=== PATIENT | male | born 1980 | race Caucasian/White ===

== ENCOUNTER 2019-11-22 22:13 | Emergency (ER) | payer SELFPAY ==
[~2019-11-22] VITALS: Ht 188 cm; Wt 90.9 kg
[2019-11-22] MEDS ORDERED: MORPHINE SULFATE 2 MG/ML VIAL. IV/SQ PRN (22:30)
[2019-11-22 22:37] LABS: BASO # 0.1 x10^3/uL (0.0-0.2); BASO % 1 % (0-3); EOS # 0.1 x10^3/uL (0.0-0.7); EOS % 1 % (0-3); HEMATOCRIT 42.2 % (39.0-53.0); HEMOGLOBIN 14.5 g/dL (13.0-17.5); LYMPH # 3.2 x10^3/uL (1.0-4.8); LYMPH % 36 % (24-48); MEAN CORPUSCULAR HEMOGLOBIN 30 pg (25-35); MEAN CORPUSCULAR HGB CONC 34 g/dL (31-37); MEAN CORPUSCULAR VOLUME 87 fL (79-100); MONO # 0.5 x10^3/uL (0.0-1.1); MONO % 6 % (0-9); NEUT # 4.9 x10^3/uL (1.8-7.7); NEUT % 56 % (31-73); PLATELET COUNT 253 x10^3/uL (140-400); RED BLOOD COUNT 4.84 x10^6/uL (4.30-5.70); RED CELL DISTRIBUTION WIDTH 13.6 % (11.5-14.5); WHITE BLOOD COUNT 8.8 x10^3/uL (4.0-11.0)
--- NOTE | 2019-11-22 22:41 | PHYS DOC ---
General Adult EDM: Chief Complaint: CHEST PAIN HPI: HPI: Patient is a 39 year old male with complaint of chest pain and left arm pain that started this evening. Patient states initially the pain started in his left arm, all the way up to his left shoulder. He states that that started about 2 hours ago and then about an hour ago he started with pain throughout his chest. He describes it as feeling like a pressure as if something is sitting on his chest. He states that it 1 point he became nauseated but did not vomit. He denies any diaphoresis. He states that at its worst pain was about a 6 out of 10 and currently is about a 5 out of 10. Patient is not aware of any exacerbat ing or alleviating factors. [] Review of Systems: Review of Systems: Constitutional: Denies fever or chills. [] Respiratory: Denies cough or shortness of breath. [] Cardiovascular: Complains of chest pain. [] GI: Denies abdominal pain, vomiting or diarrhea. [] Neurologic: Denies headache, focal weakness or sensory changes. [] A full 10 point review of systems has been reviewed and is otherwise negative. Heart Score: HEART Score for Chest Pain: HEART Score for Chest Pain Response (Comments) Value History Moderately Suspicious 1 ECG Nonspecific Repolarizatio 1 Age < 45 0 Risk Factors No Risk Factors 0 Troponin < Normal Limit 0 Total 2 Risk Factors: Risk Factors: DM, Current or recent (<one month) smoker, HTN, HLP, family history of CAD, obesity. Risk Scores: Score 0 - 3: 2.5% MACE over next 6 weeks - Discharge Home Score 4 - 6: 20.3% MACE over next 6 weeks - Admit for Clinical Observation Score 7 - 10: 72.7% MACE over next 6 weeks - Early Invasive Strategies Current Medications: Current Medications Medications (Trade) Dose Ordered Sig/[facility] Start Time Stop Time Status Last Admin Dose Admin Aspirin (Aspirin Chewable) 324 mg 1X ONCE 11/22/19 23:00 11/22/19 23:01 Morphine Sulfate (Morphine Sulfate) 2 mg PRN Q15MIN PRN 11/22/19 22:30 11/23/19 22:29 UNV Sodium Chloride 1,000 ml @ 1,000 mls/hr Q1H 11/22/19 22:26 11/22/19 23:25 UNV Allergies: Allergies: Allergies Coded Allergies Type Severity Reaction Last Updated Verified meperidine Allergy Mild Unknown 11/22/19 Yes Physical Exam: PE: Constitutional: Well developed, well nourished, no acute distress, non-toxic appearance. [] HENT: Normocephalic, atraumatic, bilateral external ears normal, oropharynx moist, no oral exudates, nose normal. [] Eyes: PERRLA, EOMI, conjunctiva normal, no discharge. [] Neck: Normal range of motion, no tenderness, supple, no stridor. [] Cardiovascular: Regular rate and rhythm [] Lungs & Thorax: Bilateral breath sounds clear to auscultation [] Abdomen: Bowel sounds normal, soft, no tenderness. [] Skin: Warm, dry, no erythema, no rash. [] Extremities: No tenderness, no cyanosis, no clubbing, ROM intact, no edema. [] Neurologic: Alert and oriented X 3, no focal deficits noted. [] EKG: EKG: EKG demonstrates normal sinus rhythm with rate of 56. [] Radiology/Procedures: Radiology/Procedures: [] Course & Med Decision Making: Course & Med Decision Making Pertinent Labs and Imaging studies reviewed. (See chart for details) [] Dragon Disclaimer: [employer] Disclaimer: This electronic medical record was generated, in whole or in part, using a voice recognition dictation system. Departure Departure Impression: Primary Impression: Chest pain Qualified Codes: R07.9 - Chest pain, unspecified Disposition: 01 HOME, SELF-CARE Condition: STABLE Patient Instructions: Chest Pain (Nonspecific) Additional Instructions: Follow-up with your primary care provider in the next few days. Return to the emergency room if you have recurrence of the chest pain. SYED DIAZ Jr. DO November 22, 2019 22:41
[2019-11-22 22:45] LABS: CALCIUM 9.5 mg/dL (8.5-10.1); GFR 83.2; POTASSIUM 4.6 mmol/L (3.5-5.1)
[2019-11-22 22:51] LABS: ALBUMIN 4.3 g/dL (3.4-5.0); ALBUMIN/GLOBULIN RATIO 1.5 (1.0-1.7); TOTAL BILIRUBIN 0.7 mg/dL (0.2-1.0); TOTAL PROTEIN 7.2 g/dL (6.4-8.2)
[2019-11-22] MEDS ORDERED: ASPIRIN CHEWABLE 81 MG TABLET. PO ONE (23:00)
[2019-11-22] MEDS ORDERED: IV NORMAL SALINE 1000ML BAG 1,000 ML IV SCH (23:00)
--- NOTE | 2019-11-22 23:08 | RAD ---
PORTABLE CHEST 1V Clinical History: Chest pain Technique: AP view of the chest was obtained at 11/22/2019 10:26 PM. Comparison: None. Findings: The cardiomediastinal silhouette is normal. The pulmonary vasculature is normal. The pleural margins are clear. There is a small calcified granuloma on the right. Impression: No evidence of an acute cardiopulmonary process. Electronically signed by: Jesus Pham III, MD (11/22/2019 11:05 PM) [id number]
[2019-11-22] MEDS ORDERED: ONDANSETRON PF 4 MG/2 ML VIAL. IVP ONE (23:30)
[2019-11-23] MEDS ORDERED: KETOROLAC 30 MG/ML VIAL. IVP ONE (00:15)
[2019-11-23 02:25] VITALS: BP 106/54
--- NOTE | 2019-11-23 06:58 | EKG ---
[facility] [address] [place] [address] Test Date: 2019-11-22 Test Time: 22:21:27 Pat Name: NOEL MARTÍNEZ Department: Room: Gender: M Collision Technician: : 1980 Requested By: SYED DIAZ Order Number: [id number] Reading MD: Solo Willis Measurements Intervals Cisco Rate: 56 P: 31 NM: 144 QRS: 4 QRSD: 88 T: 15 QT: 398 QTc: 386 Interpretive Statements SINUS RHYTHM NORMAL ECG RI6.02 No previous ECG available for comparison Electronically Signed On 11-23-2019 7:55:57 CDT by Solo Willis
== END 2019-11-23 02:25 | disposition home or self-care (01) ==
LOC: ER 22:13
DX: R07.89 Other chest pain (principal); M79.602 Pain in left arm; R11.0 Nausea; Z88.8 Allergy status to other drugs, medicaments and biological substances
CPT/HCPCS: 36415; 71045; 80053; 83690; 83735; 83880; 84484; 85025; 85379; 93005; 96374; 96375; 99285; J1885; J2270; J2405; J7030